=== PATIENT | male | born 1990 | race African-American/Black ===

== ENCOUNTER 2020-09-05 03:01 | Emergency (ER) | payer OTHER ==
[~2020-09-05] VITALS: Ht 182.9 cm; Wt 79.4 kg
[2020-09-05 04:04] LABS: URINE BILIRUBIN NEGATIVE (Negative); URINE BLOOD NEGATIVE (Negative); URINE CLARITY CLEAR; URINE COLOR YELLOW; URINE GLUCOSE-RANDOM* NEGATIVE (Negative); URINE KETONES NEGATIVE (Negative); URINE LEUKOCYTES-REFLEX NEGATIVE (Negative); URINE NITRITE-REFLEX NEGATIVE (Negative); URINE PROTEIN (DIPSTICK) NEGATIVE (Negative); URINE SPECIFIC GRAVITY 1.025 (1.005-1.035)
[2020-09-05 04:40] VITALS: BP 128/74
== END 2020-09-05 04:43 | disposition home or self-care (01) ==
LOC: ER 03:01
PROVIDERS: Emergency Medicine
DX: N34.2 Other urethritis (principal)